=== PATIENT | female | born 1980 | race Caucasian/White ===

== ENCOUNTER 2022-11-29 15:47 | Outpatient (CLI) | payer BC, MEDICAID, SELFPAY ==
--- NOTE | 2022-11-29 16:00 | CRLHL7_ITS ---
For Patients: As a result of the Century Cures Act, medical imaging exams and procedure reports are released immediately into your electronic medical record. You may view this report before your referring provider. If you have questions, please contact your health care provider. CLINICAL HISTORY: Abnormal bleeding Comparison ultrasound 05/31/2021 TECHNIQUE: Real time, tsang scale images were acquired of the pelvis using a transabdominal and transvaginal approach. Color Doppler analysis was performed of the ovaries. FINDINGS: The uterus measures 9.6 x 4.8 x 4.9 centimeters. Endometrium measures 1 cm. Fundal fibroid measuring 2.3 x 1.9 x 2.2 centimeters. Posterior fibroid measuring 2.5 x 1.8 x 2.4 centimeters. Within the lower uterine segment along the section scar is a complex cystic area measuring 1.5 x 1 x 1.3 centimeters The ovaries are unremarkable. The right ovary measures 2.8 x 1.9 x 2.3 centimeters the left ovary measures 2.7 x 2.9 x 2.7 cm no free fluid seen. IMPRESSION: 1. 1 centimeter endometrial stripe. Uterus uterine fibroids. 2. Within the area of the section scar is complex cystic area measuring 1.5 x 1 x 1.3 centimeters. Uterine dehiscence would not be excluded. Gynecology consultation would be recommended. 3. Ovaries appear unremarkable. Dictated by Zeenat Smith MD @ 11/29/2022 5:37:23 PM (Electronically Signed)
== END 2022-11-29 15:48 | disposition home or self-care (01) ==
PROVIDERS: PCP Family Medicine; Visit Provider Physician Assistant
DX: N93.9 Abnormal uterine and vaginal bleeding, unspecified (principal); D25.9 Leiomyoma of uterus, unspecified
CPT/HCPCS: 76830; 76856

== ENCOUNTER 2023-01-25 13:40 | Outpatient (CLI) | payer BC, MEDICAID, SELFPAY ==
--- NOTE | 2023-01-25 14:00 | CRLHL7_ITS ---
For Patients: As a result of the Century Cures Act, medical imaging exams and procedure reports are released immediately into your electronic medical record. You may view this report before your referring provider. If you have questions, please contact your health care provider. BILATERAL SCREENING MAMMOGRAM WITH COMPUTER-AIDED DETECTION TECHNIQUE: CC and MLO views were obtained. These mammographic images have been obtained using full-field digital technique. These mammographic images were interpreted with the benefit of computer-aided detection. COMPARISON FILM: 12/24/21. FINDINGS: The breasts are heterogeneously dense, which may obscure small masses IMPRESSION: There is no radiographic evidence for malignancy. ASSESSMENT: BI-RADS Category 1: Negative RECOMMENDATION: Routine screening mammogram in 1 year. A lay language report of this examination will be provided to the patient. Marcos Villeda M.D. Diagnostic/Nuclear Medicine Radiologist [email or web address] JOSEFA/Dictated by: Marcos Villeda MD @ 01/26/2023 8:14:00 AM (Electronically Signed)
== END 2023-01-25 13:41 | disposition home or self-care (01) ==
LOC: MAMMO 13:41
PROVIDERS: PCP Family Medicine; Visit Provider Physician Assistant
DX: Z12.31 Encounter for screening mammogram for malignant neoplasm of breast (principal); R92.2 Inconclusive mammogram
CPT/HCPCS: 77067

== ENCOUNTER 2023-02-24 16:01 | Outpatient (CLI) | payer BC, MEDICAID, SELFPAY | END 2023-02-24 16:02 | disposition home or self-care (01) | PROVIDERS: PCP Family Medicine; Visit Provider Family Medicine | DX: E03.9 Hypothyroidism, unspecified (principal); D50.9 Iron deficiency anemia, unspecified | CPT/HCPCS: 80048; 82728; 84443 ==

== ENCOUNTER 2023-04-27 02:35 | Outpatient (CLI) | payer BC, MEDICAID, SELFPAY | END 2023-04-27 02:36 | disposition home or self-care (01) | LOC: AMB 05-02 11:06 | PROVIDERS: PCP Family Medicine; Visit Provider Family Medicine | DX: I49.9 Cardiac arrhythmia, unspecified (principal) | CPT/HCPCS: A0998 ==

== ENCOUNTER 2023-04-30 11:22 | Outpatient (CLI) | payer BC, MEDICAID, SELFPAY | END 2023-04-30 11:23 | disposition home or self-care (01) | LOC: NFLDREF 05-03 05:47 | PROVIDERS: PCP Family Medicine; Referring Provider Family Medicine; Visit Provider Nurse Practitioner Family | DX: R30.0 Dysuria (principal) | CPT/HCPCS: 87086 ==

== ENCOUNTER 2023-09-20 08:18 | Outpatient (CLI) | payer BC, SELFPAY | END 2023-09-20 08:19 | disposition home or self-care (01) | LOC: NFLDREF 09-22 19:22 | PROVIDERS: PCP Family Medicine; Referring Provider Family Medicine; Visit Provider Physician Assistant | DX: E03.9 Hypothyroidism, unspecified (principal); Z13.6 Encounter for screening for cardiovascular disorders | CPT/HCPCS: 80061; 84443 ==

== ENCOUNTER 2024-01-23 17:01 | Outpatient (CLI) | payer BC, SELFPAY ==
--- NOTE | 2024-01-23 17:20 | MM_ITS ---
Patient: YAMILA ORTIZ Facility:?[facility] Patient ID:?[id number] Site Patient ID:?[id number]. Site :?[id number] Study:?XRay-Breast Bilateral 3D W/CAD-01/23/2024 5:40:03 PM Ordering Physician:Hank Jacobs Final Report: BILATERAL SCREENING MAMMOGRAM WITH COMPUTER-AIDED DETECTION AND TOMOSYNTHESIS TECHNIQUE: CC and MLO views were obtained. These mammographic images have been obtained using full-field digital technique. These mammographic images were interpreted with the benefit of computer-aided detection. Breast Tomosynthesis was used in this interpretation. COMPARISON FILM: 01/25/23, 12/31/21, 12/24/21. FINDINGS: The breasts are heterogeneously dense, which may obscure small masses IMPRESSION: There is no radiographic evidence for malignancy. ASSESSMENT: BI-RADS Category 1: Negative RECOMMENDATION: Routine screening mammogram in 1 year. A lay language report of this examination will be provided to the patient. Hank Friedman M.D. Diagnostic Radiologist [email or web address] Transcribed: 12:15 p.mConcepción keita/Dictated by: Hank Friedman MD @ 02/05/2024 10:05:00 AM Signed by:Aramis Friedman MD @02/05/2024 12:24:16 PM (Electronic Signature)
== END 2024-01-23 17:02 | disposition home or self-care (01) ==
LOC: MAMMO 17:01
PROVIDERS: PCP Family Medicine; Visit Provider Family Medicine
DX: Z12.31 Encounter for screening mammogram for malignant neoplasm of breast (principal); R92.2 Inconclusive mammogram
CPT/HCPCS: 77063; 77067

== ENCOUNTER 2024-08-19 16:22 | Outpatient (CLI) | payer BC, SELFPAY | END 2024-08-19 16:23 | disposition home or self-care (01) | PROVIDERS: PCP Family Medicine; Visit Provider Family Medicine | DX: E03.9 Hypothyroidism, unspecified (principal); D50.9 Iron deficiency anemia, unspecified; R53.83 Other fatigue | CPT/HCPCS: 80048; 84443 ==

== ENCOUNTER 2024-08-20 09:14 | Outpatient (CLI) | payer BC, SELFPAY | END 2024-08-20 09:15 | disposition home or self-care (01) | LOC: NFLDREF 09:14 | PROVIDERS: PCP Family Medicine; Visit Provider Family Medicine | DX: E03.9 Hypothyroidism, unspecified (principal); R53.83 Other fatigue; D50.9 Iron deficiency anemia, unspecified | CPT/HCPCS: 84443; 85025 ==

== ENCOUNTER 2024-09-10 09:10 | Outpatient (CLI) | payer BC, SELFPAY | END 2024-09-10 09:11 | disposition home or self-care (01) | LOC: NFLDREF 09-14 14:41 | PROVIDERS: PCP Family Medicine; Referring Provider Family Medicine; Visit Provider Physician Assistant | DX: Z01.419 Encounter for gynecological examination (general) (routine) without abnormal findings (principal); D50.9 Iron deficiency anemia, unspecified; E03.9 Hypothyroidism, unspecified; Z13.1 Encounter for screening for diabetes mellitus; Z13.6 Encounter for screening for cardiovascular disorders; Z13.29 Encounter for screening for other suspected endocrine disorder | CPT/HCPCS: 80061; 82947; 84439; 84443 ==

== ENCOUNTER 2024-10-12 03:22 | Outpatient (CLI) | payer BC, SELFPAY | END 2024-10-12 03:23 | disposition home or self-care (01) | LOC: AMB 10-13 05:44 | PROVIDERS: PCP Family Medicine; Visit Provider Emergency Medicine | DX: R00.0 Tachycardia, unspecified (principal) | CPT/HCPCS: A0998 ==

== ENCOUNTER 2024-10-15 15:01 | Outpatient (CLI) | payer BC, SELFPAY | END 2024-10-15 15:02 | disposition home or self-care (01) | PROVIDERS: PCP Family Medicine; Visit Provider Family Medicine | DX: E03.9 Hypothyroidism, unspecified (principal) | CPT/HCPCS: 84439; 84443 ==

== ENCOUNTER 2024-10-16 00:52 | Outpatient (CLI) | payer BC, SELFPAY | END 2024-10-16 00:53 | disposition home or self-care (01) | LOC: AMB 10-18 06:54 | PROVIDERS: PCP Family Medicine; Visit Provider Family Medicine | DX: I49.9 Cardiac arrhythmia, unspecified (principal) | CPT/HCPCS: A0998 ==

== ENCOUNTER 2024-12-09 14:13 | Outpatient (CLI) | payer BC, SELFPAY ==
--- NOTE | 2024-12-17 12:46 | W.PM.SLEEP ---
Sleep Study Details Details Interpreting Provider: Guy Date of Sleep Study: 12/09/24 Sleep Study Details: STUDY TYPE:? Home unattended ? BMI:? 32.2 ORDERING PROVIDER:? Nanette INDICATION:? Concern about sleep apnea ? SLEEP SUMMARY:? 560 minutes monitored RESPIRATORY SUMMARY:? AHI 1.2 Low oxygen 84 7.3% of study oxygen less than 90% Snoring 97.3% PERIODIC LIMB MOVEMENTS OF SLEEP:? Not recorded CARDIAC:? Range 51-107, mean 63.1 IMPRESSION:? This study does not demonstrate clinically significant obstructive sleep apnea. However there were significant desaturations with the patient's oxygen below 90% saturated for 42 minutes of the study. RECOMMENDATION: If sleep disorder strongly suspected would either repeat home study with a sedative hypnotic agent or repeat study in-lab. If no follow-up sleep study is performed recommend an overnight oximetry to confirm the hypoxemia noted during the study as the patient may qualify for nocturnal oxygen.
== END 2024-12-09 14:14 | disposition home or self-care (01) ==
PROVIDERS: PCP Family Medicine; Visit Provider Family Medicine
DX: G47.19 Other hypersomnia (principal); R06.83 Snoring
CPT/HCPCS: 95806

== ENCOUNTER 2025-01-03 10:41 | Outpatient (CLI) | payer BC, SELFPAY | END 2025-01-03 10:42 | disposition home or self-care (01) | LOC: NFLDREF 01-07 05:35 | PROVIDERS: PCP Family Medicine; Referring Provider Family Medicine; Visit Provider Otolaryngology | DX: G25.81 Restless legs syndrome (principal) | CPT/HCPCS: 82728 ==

== ENCOUNTER 2025-01-27 08:12 | Outpatient (CLI) | payer BC, SELFPAY ==
--- NOTE | 2025-01-27 08:15 | CRLHL7_ITS ---
For Patients: As a result of the Century Cures Act, medical imaging exams and procedure reports are released immediately into your electronic medical record. You may view this report before your referring provider. If you have questions, please contact your health care provider. BILATERAL SCREENING MAMMOGRAM WITH COMPUTER-AIDED DETECTION AND TOMOSYNTHESIS TECHNIQUE: CC and MLO views were obtained. These mammographic images have been obtained using full-field digital technique. These mammographic images were interpreted with the benefit of computer-aided detection. Breast Tomosynthesis was used in this interpretation. COMPARISON FILM: 01/23/24, 01/25/23, 12/24/21. FINDINGS: The breasts are heterogeneously dense, which may obscure small masses. IMPRESSION: There is no radiographic evidence for malignancy. ASSESSMENT: BI-RADS Category 1: Negative RECOMMENDATION: Routine screening mammogram in 1 year. A lay language report of this examination will be provided to the patient. Hank Friedman M.D. Diagnostic Radiologist [email or web address] SP/Dictated by: Hank Friedman MD @ 01/30/2025 10:43:00 AM (Electronically Signed)
== END 2025-01-27 08:13 | disposition home or self-care (01) ==
LOC: MAMMO 08:12
PROVIDERS: PCP Family Medicine; Visit Provider Physician Assistant
DX: Z12.31 Encounter for screening mammogram for malignant neoplasm of breast (principal); R92.333 Mammographic heterogeneous density, bilateral breasts
CPT/HCPCS: 77063; 77067

== ENCOUNTER 2025-08-05 20:23 | Emergency (ER) | payer BC, SELFPAY ==
--- OUTSIDE RECORDS SUMMARY | 2025-08-05 20:25 | XMS_ITS | Clinical Summary ---
Author Organization [facility] Address [address] [place] [id number] Care Team Providers Care Servicing Rep Name Role Phone Hank Fitzpatrick MD Primary Care Provider + Allergies No known active allergies Medications levothyroxine (SYNTHROID) 125 mcg tablet Take 125 mcg by mouth once daily. 10/16/2024 Active omeprazole (PRILOSEC) 20 mg Delayed-Release capsule Take 20 mg by mouth once daily before a meal. 09/17/2024 Active metoprolol succinate (Toprol XL) 50 mg sustained-releas e tabletIndication s:SVT (supraventricula r tachycardia) (HC) Take 1 Tablet (50 mg) by mouth once daily. 90 Tablet 3 11/01/2024 Active Active Problems Problem Noted Date Diagnosed Date Palpitation 07/08/2019 Social History Tobacco Use Types Packs/Day Years Used Date Smoking Tobacco: Former Cigarettes Tobacco Cessation:Counseling Given: Not Answered Alcohol Use Standard Drinks/Week Comments Not Currently 0 (1 standard drink = 0.6 oz pur e alcohol) Social Connections Answer Date Recorded Frequency of Communication with Friends and Fami ly Not on file 10/30/2021 Financial Resource Strain Answer Date R ecorded Difficulty of Paying Living Expenses Not on file 10/30/2021 Difficulty of Paying Living Expenses Not on file 10/30/2021 Comments Unknown Sex and Gender Information Value Date Recorded Sex Assigned at Not on file 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[employer] Gender Identity Not on file Sexual Orientation Not on file Obstetrics History Last Filed Vital Signs Vital Sign Reading Time Taken Comments Blood Pressure 116/76 11/28/2024 4:22 PM [employer] Pulse 60 11/28/2024 4:22 PM [employer] Temperature - - Respiratory Rate 16 11/27/2020 1:48 PM [employer] Oxygen Saturation 99% 11/28/2024 4:22 PM [employer] Inhaled Oxygen Concentration - - Weight 94.3 kg (208 lb) 11/28/2024 4:22 PM [employer] Height 170.2 cm (5' 7) 11/28/2024 4:22 PM [employer] Body Mass Index 32.58 11/28/2024 4:22 PM [employer] Plan of Treatment Health Maintenance Due Date Last Done Comments Tetanus booster 1992 Depression screening for age 12+ 1993 HIV for age 15-65 1996 Hepatitis C screening for ag e 18-79 1999 Hepatitis B series for 19+ ( 1 of 3 - 19+ 3-dose series) 2000 Pneumococcal series for age 6-49 (1 of 2 - PCV) 2000 HPV series for age 9-45 (1 - 3-dose SCDM series) 2008 Pap test for age 21-65 06/24/2025 , 06/24/2022, 04/10/2017, Additional history exists COVID-19 vaccine series ( - season) 2025 03/02/2021, 02/09/2021 Influenza Vaccine (#1) 2025 BMI (ht and wt on same day) for age 18+ 11/28/2025 11/28/2024, 11/01/2024 RSV vaccine for adults or (1 - 1-dose 75+ series) 2056 Procedures Procedure Name Priority Date/Time Associated Diagnosis Comments HPV HIGH RISK Routine 06/24/2022 11:00 AM CDT from Last 3 Months or Most Recently Relevant to Health Maintenance Results * HPV HIGH RISK (06/24/2022 11:00 AM CDT) TYPE 16 Negative Negative 06/30/2022 11:12 AM CDT [facility] TYPE 18 Negative Negative 06/30/2022 11:12 AM CDT [facility] OTHER HIGH RISK TYPES Negative Negative 06/30/2022 11:12 AM CDT [facility] Other (Cervical) 06/24/2022 11:00 AM CDT 06/28/2022 9:11 AM CDT Narrative [facility] - 06/30/2022 11:12 AM CDT HPV types 16, 18, 31, 33, 35, 39, 45, 51, 52, 56, 58, 59, 66 and 68 DNA were undetectable or below the pre-set threshold. Methodology: Damaris Cinthya 4800 HPV Test january Romi [facility]ERNAN[facility] [employer] Final Resu lt [facility] [address] [place] [address], from Last 3 Months or Most Recently Relevant to Health Maintenance [place] [id number] [facility] [employer] Care Teams Servicing Rep Relationship Specialty Start Date End Date Hank Fitzpatrick MD [address] [place] [address] PCP - General Family Practice 11/25/20
[2025-08-05 20:33] VITALS: BP 128/75; PULSE 85; RESP 16; TEMP 36.3; O2SAT 98; BMI 32.9
--- NOTE | 2025-08-05 21:02 | ED.GIBLEED ---
HPI - GI Bleed General Time Seen by Provider: 21:02 Date Seen: 08/05/25 Chief complaint: GI Bleed Stated complaint: Rectal bleeding Time Seen by Provider: 08/05/25 21:02 Source: patient Mode of arrival: ambulatory History of Present Illness HPI Narrative: Alem is a 44-year-old female presents the emergency department for evaluation of GI bleeding. Patient presents from home with her spouse with concerns for bright red blood per rectum. Patient reports that she had 2 episodes of bowel movements today that were bloody. Patient states that initially had an episode this morning, went to work, and then had another episode this evening. Patient reports that the water was red and is unclear if she had brown stools with bloody streaks or what her stool looks like. Patient denies any weakness, dizziness, chest pain, shortness of breath, abdominal pain, nausea, vomiting, diarrhea. Patient reports normal bowel movements. Patient reports history of diverticulosis and reports last had an endoscopy and colonoscopy approximately 5-6 years ago. No other complaints. Related Data Home Medications ?Medication ?Instructions ?Recorded ?Confirmed metoprolol succinate 50 mg 50 mg PO DAILY 01/02/25 08/05/25 tablet,extended release 24 hr Previous Rx's ?Medication ?Instructions ?Recorded levothyroxine 125 mcg tablet 125 mcg PO QDAY #90 tabs 05/08/25 Allergies Allergy/AdvReac Type Severity Reaction Status Date / Time No Known Drug Allergies Allergy Verified 08/05/25 23:14 Review of Systems Narrative: Past medical history, past surgical history, medications, allergies, family history, and social history were reviewed with the patient. No additional pertinent items. A medically appropriate review of systems was performed with pertinent positives and negatives noted in HPI, all other systems negative. 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 - Developmental disorders of jaws (ICD-10) Hypothyroidism ?E03.9 - Hypothyroidism, unspecified (ICD-10) History of spontaneous ?Z87.59 - Personal history of other complications of , childbirth and the puerperium (ICD-10) Surgical History History of dilation and curettage ?Z98.890 - Other specified postprocedural states (ICD-10) History of bilateral ligation of fallopian tubes (2014) ?Z98.51 - Tubal ligation status (ICD-10) History of appendectomy (2000) ?Z90.49 - Acquired absence of other specified parts of digestive tract (ICD-10) History of 2 sections ?Z98.891 - History of uterine scar from previous surgery (ICD-10) Family History Maternal Grandmother Breast cancer Family/Other Cancer of tongue Diabetes Heart disease History of hyperlipidemia High blood pressure Aunt Colon cancer Maternal Grandmother Factor 5 Leiden mutation, heterozygous 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 No concerns with safety or abuse. What is your current living situation?: I presently have a place to live Problems where you live: no known problems and declined to answer In the past 12 months, utilities in danger of being shut off: no In past 12 months, lack of transportation kept you from medical appts, meetings, work, or getting things needed for daily living: no In the past 12 mos, have been you worried that your food would run out before you had money to buy more?: never true In the past 12 mos, the food you bought just didn't last and you didn't have money to buy more?: never true Smoking Status: Former smoker Do you use any of these nicotine containing products: None How often do you have a drink containing alcohol: never AUDIT-C Alcohol total score: 0 Non-prescribed substance use: denies use How often does anyone, including family, friends and others, physically hurt you: never How often does anyone, including family, friends and others, insult or talk down to you: rarely How often does anyone, including family, friends and others, threaten you with harm: never How often does anyone, including family, friends and others, scream or curse at you: never Health Related Social Needs: Other personal risk factors, not elsewhere classified (Z91.89) Exam Narrative: Exam Narrative: General: Afebrile, no acute distress HEENT: Normocephalic, atraumatic, conjunctiva normal. MMM Neck: non-tender, supple Cardio: regular rate. regular rhythm Resp: Normal work of breathing, no respiratory distress, lungs clear bilaterally, no wheezing, rhonchi, rales Chest/Back: no visual signs of trauma, no midline tenderness, no CVA tenderness Abdomen: soft, non distension, no tenderness, no peritoneal signs; rectal examination with small external hemorrhoid with no bleeding, no evidence of fissure, no gross blood on rectal examination Neuro: alert and fully oriented. CN II-XII grossly intact. Grossly normal strength and sensation in all extremities. MSK: no deformities. Normal range of motion Integumentary/Skin: no rash visualized, normal color Psych: normal affect, normal behavior Const: Vital Signs, click to edit/add: Vital Signs - 24 hr 08/05/25 20:33 08/05/25 22:30 Temperature 97.4 F L Pulse Rate [Right Pulse Oximeter] 85 75 Respiratory Rate 16 16 Blood Pressure [Le ft Upper Arm] 128/75 114/70 Pulse Oximetry 98 100 Oxygen Delivery Me thod Room Air Course Vital Signs Vital signs: Initial Vital Signs Temperature 97.4 F L 08/05/25 20:33 Temperature Source Temporal Artery Scan 08/05/25 20:33 Pulse Rate 85 08/05/25 20:33 Respiratory Rate 16 08/05/25 20:33 Blood Pressure 128/75 08/05/25 20:33 Blood Pressure Mean 92 08/05/25 20:33 Blood Pressure Position Semi-Fowlers 08/05/25 20:33 Pulse Oximetry 98 08/05/25 20:33 Oxygen Delivery Method Room Air 08/05/25 20:33 Vital Signs Temperature 97.4 F L 08/05/25 20:33 Pulse Rate 85 08/05/25 20:33 Respiratory Rate 16 08/05/25 20:33 Blood Pressure 128/75 08/05/25 20:33 Pulse Oximetry 98 08/05/25 20:33 Oxygen Delivery Method Room Air 08/05/25 20:33 Temperature 97.4 F L 08/05/25 20:33 Pulse Rate 75 08/05/25 22:30 Respiratory Rate 16 08/05/25 22:30 Blood Pressure 114/70 08/05/25 22:30 Pulse Oximetry 100 08/05/25 22:30 Oxygen Delivery Method Room Air 08/05/25 20:33 MDM - GI Bleed MDM Narrative Medical decision making narrative: Alem is a 44-year-old female presents the emergency department for evaluation of GI bleeding. Upon arrival patient is nontoxic appearing, afebrile, no distress. Differential diagnosis includes but is not limited to hemorrhoids versus fissure versus colitis versus tumor versus diverticulosis versus gastritis versus upper GI bleed versus lower GI bleed among others. Abdomen is soft, nontender, nondistended with no peritoneal signs. Rectal examination with small external hemorrhoid, no fissure, no gross blood. Upon arrival comprehensive labs and CT imaging were performed. Comprehensive labs remarkable for white blood cell count of 11.25, hemoglobin 12.1, no acute metabolic or electrolyte abnormality, no significant transaminitis, normal bilirubin. I personally reviewed interpreted CT scan abdomen pelvis which demonstrates no acute intra-abdominal pathology. No evidence of active bleeding, no large mass. No clear etiology of patient's symptoms. Patient with no active bleeding on examination and in the emergency department no further episodes of bleeding. I discussed results with patient, overall she is nontoxic appearing, hemoglobin stable, vital signs within normal limits. Patient's and spouse feel comfortable discharge home with close outpatient follow-up with her primary care provider, discussed importance of follow-up and also recommend outpatient colonoscopy for further evaluation. Strict return precautions discussed if weakness/dizziness, chest pain/shortness of breath, abdominal pain, ongoing rectal bleeding, or any worsening symptoms. Patient is also understand agrees the plan. Medical Records Attestation: I reviewed the patient's medical records. Lab Data Attestation: I reviewed the patient's lab results. Labs: Lab Results 08/05/25 Range/Units 22:20 WBC 11.25 H (4.50-11.00) K/uL RBC 4.76 (4.00-5.20) m/uL Hgb 12.1 (12.0-16.0) gm/dL Hct 39.3 (33.0-51.0) % MCV 83 (80-100) fL MCH 25 L (26-34) pg MCHC 31 L (32-36) gm/dL RDW Coeff of Héctor 14.6 (11.5-15.5) % Plt Count 131 L (140-440) K/uL Neut % (Auto) 67.9 (42.0-72.0) % Lymph % (Auto) 22.7 (20-44) % [place] % (Auto) 7.6 (0.0-11.0) % Eos % (Auto) 1.3 (0.0-7.0) % Baso % (Auto) 0.4 (0.0-3.0) % Neut # (Auto) 7.60 H (1.7-7.0) K/uL Lymph # (Auto) 2.60 (0.90-2.90) K/uL [place] # (Auto) 0.90 (0.00-0.90) K/UL Eos # (Auto) 0.10 (0.00-0.50) K/uL Baso # (Auto) 0.00 (0.00-0.30) K/uL Abs Immat Gran (auto) 0.00 (0.00-0.30) K/uL Imm/Tot Granulo (auto) 0.1 % Sodium 140 (135-149) mmol/L Potassium 3.6 (3.6-5.1) mmol/L Chloride 105 (96-114) mmol/L Carbon Dioxide 27 (20-32) mmol/L Anion Gap 8 (7-15) mEq/L BUN 18 (5-24) mg/dL Creatinine 0.9 (0.5-1.5) mg/dL Estimated Creat Clear 78.38 Estimated GFR 81 ml/min Glucose 91 (60-115) mg/dL Calcium 9.1 (8.4-10.6) mg/dL Total Bilirubin 0.2 (0.1-1.5) mg/dL AST 40 H (12-35) U/L ALT 37 H (4-35) U/L Alkaline Phosphatase 65 (40-150) U/L Total Protein 7.6 (6.0-8.3) g/dL Albumin 4.4 (3.3-5.0) g/dL Imaging Data CT scan - abdomen: Attestation: I have reviewed the pertinent imaging results. Radiologist's impression: Findings: Lower chest: No acute abnormality appreciated. Hepatobiliary: No significant parenchymal abnormality is appreciated. Cholelithiasis. Spleen: Unremarkable. Pancreas: No acute abnormality appreciated. Adrenal glands: No acute abnormality appreciated. Kidneys: No significant parenchymal abnormality appreciated. No visualized calculi. No hydronephrosis. Bowel: No obstruction. No focal perienteric or pericolonic stranding is appreciated. Vascular: No acute abnormality appreciated. Lymph nodes: No gross lymphadenopathy. Peritoneum: No free air. No free fluid. : Presumed thyroids. Simple cysts in the left ovary. Soft tissues: No acute abnormality appreciated. Bones: No acute fracture. No lytic or blastic lesion. Impression: No acute abnormality appreciated to account for patient`s reported symptoms. Discharge Plan Discharge Clinical Impression: Bloody stools Patient Disposition: Home, Self-Care Condition: Stable Instructions: Rectal Bleeding (ED) Additional Instructions: Please follow-up with your primary care provider in the next 3-5 days for further evaluation and follow-up. Please call to schedule appointment. We recommend close outpatient follow-up with your primary care provider as well as scheduling a colonoscopy all patient for further evaluation of your bleeding. Please continue on medications, please continue to monitor your stools, please return to the emergency department if he developed weakness/dizziness, severe abdominal pain, persistent bloody stools, worsening symptoms. It was a pleasure taking care of you today. We hope you feel better soon. Prescriptions: No Action metoprolol succinate 50 mg tablet extended release 24 hr 50 mg PO DAILY levothyroxine 125 mcg tablet 125 mcg PO QDAY Qty: 90 1RF Follow Up/Referrals: Hank Fitzpatrick MD [Primary Care Provider, Family Practice] Stand Alone Forms: JAZ[facility] Info Instructions
[2025-08-05 22:30] VITALS: BP 114/70; PULSE 75; RESP 16; O2SAT 100
[2025-08-05 22:30] LABS: Hematocrit* 39.3 % (33.0-51.0); Hemoglobin* 12.1 gm/dL (12.0-16.0); Immature Granulocytes Pct Auto 0.1 %; Mean Corpuscular HGB Conc 31 gm/dL (32-36); Mean Corpuscular Hemoglobin 25 pg (26-34); Mean Corpuscular Volume 83 fL (80-100); RDW Coefficient of Variation % 14.6 % (11.5-15.5); Red Blood Count* 4.76 m/uL (4.00-5.20); White Blood Count* 11.25 K/uL (4.50-11.00)
[2025-08-05 22:35] LABS: Immature Granulocytes Abs Auto 0.00 K/uL (0.00-0.30); Lymphocytes Absolute Auto 2.60 K/uL (0.90-2.90); Slide Review Reflex No
--- NOTE | 2025-08-05 22:55 | CRLHL7_ITS ---
For Patients: As a result of the Century Cures Act, medical imaging exams and procedure reports are released immediately into your electronic medical record. You may view this report before your referring provider. If you have questions, please contact your health care provider. Indication: Bloody stools Technique: CT through the abdomen and pelvis following 100 mL Isovue 370 IV contrast Comparison: None Findings: Lower chest: No acute abnormality appreciated. Hepatobiliary: No significant parenchymal abnormality is appreciated. Cholelithiasis. Spleen: Unremarkable. Pancreas: No acute abnormality appreciated. Adrenal glands: No acute abnormality appreciated. Kidneys: No significant parenchymal abnormality appreciated. No visualized calculi. No hydronephrosis. Bowel: No obstruction. No focal perienteric or pericolonic stranding is appreciated. Vascular: No acute abnormality appreciated. Lymph nodes: No gross lymphadenopathy. Peritoneum: No free air. No free fluid. : Presumed thyroids. Simple cysts in the left ovary. Soft tissues: No acute abnormality appreciated. Bones: No acute fracture. No lytic or blastic lesion. Impression: No acute abnormality appreciated to account for patient`s reported symptoms. Please note that all CT scans at this facility use dose modulation, iterative reconstruction, and/or weight-based dosing when appropriate to reduce radiation dose to as low as reasonably achievable. Dictated by Ricardo Ramirez MD @ 08/06/2025 12:21:39 AM (Electronically Signed)
[2025-08-05 23:13] LABS: Chloride* 105 mmol/L (96-114)
[2025-08-05 23:14] LABS: Albumin* 4.4 g/dL (3.3-5.0); Potassium* 3.6 mmol/L (3.6-5.1); Sodium* 140 mmol/L (135-149)
[2025-08-05 23:16] LABS: Alanine Aminotransferase* 37 U/L (4-35); Anion Gap 8 mEq/L (7-15); Aspartate Amino Transferase* 40 U/L (12-35); Carbon Dioxide* 27 mmol/L (20-32)
[2025-08-05 23:17] LABS: Alkaline Phosphatase* 65 U/L (40-150); Bilirubin Total* 0.2 mg/dL (0.1-1.5); Calcium* 9.1 mg/dL (8.4-10.6); Creatinine* 0.9 mg/dL (0.5-1.5); Est. Creatinine Clearance* 78.38; Estimated Glomerular Filt Rate 81 ml/min; Glucose* 91 mg/dL (60-115); Total Protein* 7.6 g/dL (6.0-8.3)
[2025-08-05 23:18] LABS: Blood Urea Nitrogen* 18 mg/dL (5-24)
== END 2025-08-06 00:54 | disposition home or self-care (01) ==
PROVIDERS: Emergency Provider Emergency Medicine; PCP Family Medicine
DX: K92.2 Gastrointestinal hemorrhage, unspecified (principal)
CPT/HCPCS: 36415; 74177; 80053; 85025; 99284; 99285; Q9967

== ENCOUNTER 2025-09-11 08:39 | Outpatient (CLI) | payer BC, SELFPAY | END 2025-09-11 08:40 | disposition home or self-care (01) | PROVIDERS: PCP Family Medicine; Visit Provider Physician Assistant | DX: D50.9 Iron deficiency anemia, unspecified (principal); E03.9 Hypothyroidism, unspecified; Z13.9 Encounter for screening, unspecified | CPT/HCPCS: 80061; 82728; 84443 ==